=== PATIENT | female | born 1965 | race Caucasian/White ===

== ENCOUNTER 2017-11-05 09:21 | Day surgery (SDC) | payer MEDICARE, OTHER ==
[~2017-11-05] VITALS: Ht 175.3 cm; Wt 104.3 kg
[~2017-11-05 09:21] MED LIST: ALBU90OI INH; ALPR1; ASPI81EC PO; AZIT250 PO; BENZ100A PO; CARI350; CARI350 PO; CIPR500 PO; CLON1 PO; CLON2 PO; Duoneb 2.5-0.5 M3 ML INH; ESCI20 PO; GABA300 PO; GUAPHELA PO; HYDACE10B; HYDACE5 PO; HYDGUAL120 PO; HYDPAM25 PO; HYDPAM50 PO; IBUP800 PO; Kristalose20 GM PO; LACT10SY PO; LAMO100 PO; LEVFLO500 PO; MIRT15 PO; MORP15ER; MORP15ER PO; NAPR500; NITR100CA PO; OXYACE5T PO; OXYC10TA19 PO; PERP4 PO; PRAM.125 PO; PRAZ1 PO; PRAZ2 PO; PRED10 PO; PRED20 PO; PROACE100 PO; Percocet 7.5-31 EACH PO; Prednisone20 MG PO; QUET100; QUET200; QUET200 PO; QUET25; QUET25 PO; QUET300 PO; REPA2 PO; RXHYDGUAS PO; SENN187 PO; SIMV20 PO; SULTRIDS PO; TIZANIDINE HCL4 MG PO; VIBRYD PO; VIIBRYD40 MG PO; Vibramycin100 MG PO; Zithromax250 MG PO
== END 2017-11-05 23:04 | disposition home or self-care (01) ==
LOC: ORSCMMR 09:21
PROVIDERS: Internal Medicine Gastroenterology
PROC: 0DB48ZX Excision of Esophagogastric Junction, Via Natural or Artificial Opening Endoscopic, Diagnostic (ICD-10-PCS; principal; 2017-11-05 10:30)
PROC: 0DB68ZX Excision of Stomach, Via Natural or Artificial Opening Endoscopic, Diagnostic (ICD-10-PCS; principal; 2017-11-05 10:30)
PROC: 0DB58ZX Excision of Esophagus, Via Natural or Artificial Opening Endoscopic, Diagnostic (ICD-10-PCS; principal; 2017-11-05 10:30)
PROC: 0D758ZZ Dilation of Esophagus, Via Natural or Artificial Opening Endoscopic (ICD-10-PCS; principal; 2017-11-05 10:30)
PROC: 0DB98ZX Excision of Duodenum, Via Natural or Artificial Opening Endoscopic, Diagnostic (ICD-10-PCS; principal; 2017-11-05 10:30)
DX: R13.14 Dysphagia, pharyngoesophageal phase (principal); K29.80 Duodenitis without bleeding; K29.70 Gastritis, unspecified, without bleeding; F41.9 Anxiety disorder, unspecified; G47.33 Obstructive sleep apnea (adult) (pediatric); Z79.899 Other long term (current) drug therapy; F17.210 Nicotine dependence, cigarettes, uncomplicated
CPT/HCPCS: 88305; 88342; C1726; J2250; J3010; J7120

== ENCOUNTER 2018-05-16 23:25 | Emergency (ER) | payer MEDICARE, OTHER ==
[~2018-05-16] VITALS: Ht 175.3 cm; Wt 90.7 kg
[2018-05-16] MEDS ORDERED: SPIRIVA RESPIMAT4 GM INH (23:44)
[2018-05-16] MEDS ORDERED: QUETIAPINE FUM400 M1 PO (23:45)
[2018-05-16 23:49] LABS: BASOPHILS ABSOLUTE AUTO 0.05 K/mm3 (0.00-0.23); BASOPHILS PERCENT AUTO 0 % (0-2); EOSINOPHILS PERCENT AUTO 2 % (0-6); Hematocrit 40.2 % (33.0-51.0); Hemoglobin 13.2 g/dL (11.5-16.0); IMMATURE GRAN ABSOLUTE AUTO 0.07 K/mm3 (0.00-0.10); IMMATURE GRAN PERCENT AUTO 1 % (0-1); LYMPHOCYTES ABSOLUTE AUTO 3.27 K/mm3 (0.84-5.20); LYMPHOCYTES PERCENT AUTO 26 % (21-46); MONOCYTES ABSOLUTE AUTO 1.03 K/mm3 (0.16-1.47); MONOCYTES PERCENT AUTO 8 % (4-13); Mean Corpuscular HGB 31.7 pg (26.0-34.0); Mean Corpuscular HGB Conc 32.8 g/dL (31.5-36.5); Mean Corpuscular Volume 97 fL (80-100); Mean Platelet Volume 9.5 fL (9.1-12.4); NEUTROPHILS ABSOLUTE AUTO 7.98 K/mm3 (1.96-9.15); NEUTROPHILS PERCENT AUTO 63 % (41-73); Platelet Count 246 K/mm3 (150-400); RDW Coefficient Variation 12.7 % (11.7-14.2); RDW Standard Deviation 45.2 fL (35.1-46.3); Red Blood Cell Count 4.16 M/mm3 (3.80-5.20)
[2018-05-17 00:09] LABS: Alanine Aminotransfer (ALT/SGP 24 U/L (12-78); Albumin, Blood 3.3 g/dL (3.4-5.0); Albumin/Globulin Ratio 0.9 (0.8-1.8); Alk Phos 132 U/L (50-136); Anion Gap 9 mmol/L (6-16); Aspartate Aminotrans (AST/SGOT 18 U/L (12-37); Bilirubin, Total 0.2 mg/dL (0.1-1.0); Blood Urea Nitrogen 15 mg/dL (8-24); Bun/Creatinine Ratio 14.2 (12.0-20.0); CO2, Blood 22 mmol/L (21-32); Chloride, Blood 108 mmol/L (98-108); Creatinine, Blood 1.06 mg/dL (0.40-1.00); Globulin, Blood 3.8 g/dL (2.2-4.0); Glomerular Filtration Rate 58 (60-); Glucose, Blood 127 mg/dL (70-99); Magnesium, Blood 1.9 mg/dL (1.6-2.4); Potassium, Blood 3.6 mmol/L (3.5-5.5); Sodium, Blood 139 mmol/L (136-145); Total Protein, Blood 7.1 g/dL (6.4-8.2); Troponin I <0.015 ng/mL (0.000-0.040)
[2018-05-17] MEDS ORDERED: Prednisone20 MG PO (01:27)
[2018-05-17] MEDS ORDERED: ALBU2.5V5 NEB (01:47)
== END 2018-05-17 01:52 | disposition home or self-care (01) ==
LOC: ER 23:25
PROVIDERS: Emergency Medicine
DX: J44.1 Chronic obstructive pulmonary disease with (acute) exacerbation (principal); F32.9 Major depressive disorder, single episode, unspecified; F41.9 Anxiety disorder, unspecified; F17.210 Nicotine dependence, cigarettes, uncomplicated; Z88.0 Allergy status to penicillin; Z88.1 Allergy status to other antibiotic agents; Z79.899 Other long term (current) drug therapy
CPT/HCPCS: 71045; 80053; 83735; 83880; 84484; 85025; 93005; 93010; 94644; 99285-25

== ENCOUNTER 2018-11-02 10:00 | Day surgery (SDC) | payer MEDICARE, OTHER ==
[~2018-11-02] VITALS: Ht 175.3 cm; Wt 110.4 kg
[~2018-11-02 10:00] MED LIST changes: +ALBU2.5V5 NEB; +COMBIVENT RESPIM4 GM INH; +Flovent 110 MCG12 GM INH; +MIRAPEX ER2.25 MG PO; +Perphenazine16 MG PO; +QUETIAPINE FUM400 M1 PO; +SPIRIVA RESPIMAT4 GM INH; +Seroquel400 MG PO; +TIOT18 INH
[2018-11-02] MEDS ORDERED: Percocet 10-321 EACH (11:06)
--- NOTE | 2018-11-02 11:24 | NUR ---
11/02/18 1124 Wilmar Garcia 1110-DR ALICIA IN ROOM AND SITE CHECK DONE. DR ALICIA DID A LEFT SHOULDER BLOCK. PATIENT TOLERATED PROCEDURE WELL. VSS
--- NOTE | 2018-11-02 14:20 | NUR ---
11/02/18 1420 Rupinder Marie INSTRUCTED ON IS USE, POLAR PK USE. SHOULDER IMMOBILIZER USE, PAIN MEDS, S&S INFECTION, DRESSINGS, ROM HO FINGERS WRIST HAND, NO USE OF SHOULDER, NO LIFTING, HOME WITH FRIEND YVES TO CAR IN
== END 2018-11-02 14:12 | disposition home or self-care (01) ==
LOC: ORSCSDS 10:00
DX: M75.112 Incomplete rotator cuff tear or rupture of left shoulder, not specified as traumatic (principal); M75.22 Bicipital tendinitis, left shoulder; I10 Essential (primary) hypertension; J44.9 Chronic obstructive pulmonary disease, unspecified; Z87.891 Personal history of nicotine dependence; F31.9 Bipolar disorder, unspecified; E66.9 Obesity, unspecified; Z68.35 Body mass index [BMI] 35.0-35.9, adult; Z79.899 Other long term (current) drug therapy
CPT/HCPCS: C1713; J0171; J1100; J2250; J2370; J2405; J2710; J3010; J7120

== ENCOUNTER 2018-11-28 19:33 | Emergency (ER) | payer OTHER, MEDICARE ==
[~2018-11-28] VITALS: Ht 175.3 cm; Wt 106.6 kg
[~2018-11-28 19:33] MED LIST changes: +Percocet 10-321 EACH
[2018-11-28] MEDS ORDERED: CYCL10 PO (21:37)
== END 2018-11-28 21:44 | disposition home or self-care (01) ==
LOC: ER 19:33
DX: M54.6 Pain in thoracic spine (principal); V43.62XA Car passenger injured in collision with other type car in traffic accident, initial encounter; Z88.0 Allergy status to penicillin; Z88.8 Allergy status to other drugs, medicaments and biological substances; Z88.1 Allergy status to other antibiotic agents; Z79.899 Other long term (current) drug therapy; Z79.891 Long term (current) use of opiate analgesic; F32.9 Major depressive disorder, single episode, unspecified; F41.9 Anxiety disorder, unspecified; J44.9 Chronic obstructive pulmonary disease, unspecified; Z87.891 Personal history of nicotine dependence
CPT/HCPCS: 72040; 96372; 99283-25; J1885

== ENCOUNTER → 2019-04-29 | Outpatient (CLI) | payer MEDICARE, OTHER ==
[~2019-04-29] MED LIST changes: +CYCL10 PO
[2019-04-29 16:54] LABS: U Amphetamine Screen Not Detected; U Barbituate Screen Not Detected; U Benzodiazapine Screen Not Detected; U Buprenorphine Screen Not Detected; U Cannabinoids Screen Not Detected; U Cocaine Screen Not Detected; U Methadone Screen Not Detected; U Methamphetamine Screen Not Detected; U Opiates Screen Not Detected; U Oxycodone Screen Not Detected; U Phencyclidine Screen Not Detected; U Propoxyphene Screen Not Detected
[2019-05-06 14:07] LABS: TRICYCLIC ANTIDEP Negative ng/mL (Cutoff=100)
== END | disposition home or self-care (01) ==
LOC: LAB SHORT 16:34 → LAB 16:34
PROVIDERS: Registered Nurse Psychiatric/Mental Health
DX: Z51.81 Encounter for therapeutic drug level monitoring (principal); Z79.899 Other long term (current) drug therapy
CPT/HCPCS: 80369; G0481

== ENCOUNTER → 2019-10-24 | Outpatient (CLI) | payer MEDICARE, OTHER ==
[2019-10-24 20:10] LABS: U Amphetamine Screen Not Detected; U Barbituate Screen Not Detected; U Benzodiazapine Screen Not Detected; U Buprenorphine Screen Not Detected; U Cannabinoids Screen DETECTED; U Cocaine Screen Not Detected; U Methadone Screen Not Detected; U Methamphetamine Screen Not Detected; U Opiates Screen Not Detected; U Oxycodone Screen Not Detected; U Propoxyphene Screen Not Detected
== END | disposition home or self-care (01) ==
LOC: LAB 11:30 → LAB SHORT 11:30
PROVIDERS: Registered Nurse Psychiatric/Mental Health
DX: Z51.81 Encounter for therapeutic drug level monitoring (principal); Z79.899 Other long term (current) drug therapy

== ENCOUNTER 2021-01-04 08:01 | Day surgery (SDC) | payer MEDICARE, OTHER ==
[~2021-01-04] VITALS: Ht 175.3 cm; Wt 111.5 kg
== END 2021-01-04 12:30 | disposition home or self-care (01) ==
LOC: ORSCSDS 08:01
PROVIDERS: Podiatrist Foot & Ankle Surgery
PROC: 0LQT0ZZ Repair Left Ankle Tendon, Open Approach (ICD-10-PCS; principal; 2021-01-04 09:30)
PROC: 0LXT0ZZ Transfer Left Ankle Tendon, Open Approach (ICD-10-PCS; principal; 2021-01-04 09:30)
DX: M76.822 Posterior tibial tendinitis, left leg (principal); M21.42 Flat foot [pes planus] (acquired), left foot; I10 Essential (primary) hypertension; J44.9 Chronic obstructive pulmonary disease, unspecified; K21.9 Gastro-esophageal reflux disease without esophagitis; E66.01 Morbid (severe) obesity due to excess calories; Z68.36 Body mass index [BMI] 36.0-36.9, adult; F31.9 Bipolar disorder, unspecified; F41.9 Anxiety disorder, unspecified; Z79.899 Other long term (current) drug therapy
CPT/HCPCS: A9270; C1713; J0171; J1100; J2250; J2405; J2704; J3010

== ENCOUNTER 2021-08-06 14:05 | Emergency (ER) | payer MEDICARE, OTHER ==
[~2021-08-06] VITALS: Ht 175.3 cm; Wt 99.8 kg
== END 2021-08-06 17:33 | disposition home or self-care (01) ==
LOC: ER 14:05
DX: F41.0 Panic disorder [episodic paroxysmal anxiety] (principal); J44.9 Chronic obstructive pulmonary disease, unspecified; Z88.0 Allergy status to penicillin; Z88.1 Allergy status to other antibiotic agents; Z88.8 Allergy status to other drugs, medicaments and biological substances; Z79.899 Other long term (current) drug therapy; Z87.891 Personal history of nicotine dependence
CPT/HCPCS: 96374; 96375; 96376; 99283-25; J1200; J1790; J2060

== ENCOUNTER 2024-05-09 10:32 | Day surgery (SDC) | payer OTHER ==
[~2024-05-09] VITALS: Ht 175.3 cm; Wt 97.4 kg
[2024-05-09] VITALS (18 sets, daily range): BP systolic 128–173; BP diastolic 65–99
[~2024-05-09 10:32] MED LIST changes: +TIZA4 PO; +VICODIN PO
[2024-05-09] MEDS ORDERED: Ropivacaine 0.5% HCl/Pf 123.125 MG,EPINEPHrine HCL 0.25 MG,Ketorolac Tromethamine 15 MG... INFIL SCH (11:10)
[2024-05-09] MEDS ORDERED: OxyCODONE HCL 10 MG TABCR PO SCH (11:10)
[2024-05-09] MEDS ORDERED: Chlorhexidine Mouth Care 15 ML UDC MT SCH (11:10)
[2024-05-09] MEDS ORDERED: Acetaminophen 500 MG Tab PO SCH ×2 (11:10→16:00)
[2024-05-09] MEDS ORDERED: CeFAZolin Sodium 2,000 MG in NS 100 ML IV SCH ×2 (11:10→21:00)
[2024-05-09] MEDS ORDERED: Lactated Ringer's 1,000 ML IV SCH ×2 (11:10→13:05)
[2024-05-09] MEDS ORDERED: Tranexamic Acid 100 ML IV SCH (11:12)
[2024-05-09] MEDS ORDERED: FentaNYL Citrate 50 MCG/ML 2 ML Injection ONE ×3 (12:08→14:49)
[2024-05-09] MEDS ORDERED: propofoL 60 ML IV ONE (12:08)
--- NOTE | 2024-05-09 12:12 | NUR ---
History, Chart, Medications and Allergies reviewed before start of procedure. Pre-Op teaching done. Pt verbalizes understanding. Ambulatory in Day Surgery WITH STEADY GAIT. 2 RINGS REMOVED AND PLACED IN SPECIMEN CUP WITH PT LABEL AND PLACED IN BELONGINGS BAG. BELONGINGS PLACED UNDER GURNEY. PT DENIES FURTHER NEEDS AT THIS TIME.
[2024-05-09] MEDS ORDERED: Ondansetron HCl 2 MG / ML 2ML Vial ONE (12:53)
[2024-05-09] MEDS ORDERED: Dexamethasone Sod Phos 10 MG/ML 1ML VIAL ONE (12:53)
[2024-05-09] MEDS ORDERED: TiZANidine HCl 4 MG Tab PO PRN (12:55)
[2024-05-09] MEDS ORDERED: ClonazePAM 1 MG Tab PO PRN (13:00)
[2024-05-09] MEDS ORDERED: Metoclopramide HCl 5MG / ML 2ML Vial IV PRN (13:00)
[2024-05-09] MEDS ORDERED: Magnesium Hydroxide Conc 10 ML UDC PO PRN (13:05)
[2024-05-09] MEDS ORDERED: OxyCODONE HCL 5 MG TAB PO PRN ×2 (13:05)
[2024-05-09] MEDS ORDERED: Ondansetron HCl 2 MG / ML 2ML Vial IV PRN (13:05)
[2024-05-09] MEDS ORDERED: Misc. Tablet PO PRN (13:10)
[2024-05-09] MEDS ORDERED: HYDROmorphone HCl/Pf 1MG SYR IV PRN (13:10)
[2024-05-09] MEDS ORDERED: Bisacodyl 10 MG Supp PR PRN (13:10)
[2024-05-09] MEDS ORDERED: Promethazine HCl 25 MG Tab PO PRN (13:20)
[2024-05-09] MEDS ORDERED: DiphenhydrAMINE HCL 25 MG Cap PO PRN (13:20)
[2024-05-09] MEDS ORDERED: HYDROmorphone HCl/Pf 1MG SYR ONE ×2 (13:23→14:50)
--- NOTE | 2024-05-09 13:40 | NUR ---
05/09/24 1340 Sacha,Carole HEALING WOUND NOTICED ON DORSAL SURFACE OF RIGHT FOOT PRIOR TO ARRIVAL TO THE OR.
--- NOTE | 2024-05-09 17:33 | NUR ---
shift summary PT REPORTS PAIN MANAGED WELL PER EMAR. DRESSING REMAINS CDI. PT HAS YET TO VOID, ENCOURAGING PO INTAKE. TOLERATING HER DIET WELL. POLAR MILLA IN PLACE. GARRISON WRAP CDI. DENIES N/T. PLAN WILL BE FOR PATIENT TO WORK WITH THERAPY AND DISCHARGE TOMORROW.
[2024-05-09] MEDS ORDERED: Ketorolac Tromethamine 15mg Vial IV SCH (18:00)
[2024-05-09] MEDS ORDERED: QUEtiapine Fumarate 100 MG Tab PO SCH (21:00)
[2024-05-09] MEDS ORDERED: Docusate Sodium 100 MG Cap PO SCH (21:00)
[2024-05-10 02:05] VITALS: BP 123/59
[2024-05-10 04:27] LABS: BASOPHILS ABSOLUTE AUTO 0.02 K/mm3 (0.00-0.23); BASOPHILS PERCENT AUTO 0 % (0-2); EOSINOPHILS ABSOLUTE AUTO 0.01 K/mm3 (0.00-0.68); EOSINOPHILS PERCENT AUTO 0 % (0-6); Hematocrit 36.7 % (33.0-51.0); Hemoglobin 12.5 g/dL (11.5-16.0); IMMATURE GRAN ABSOLUTE AUTO 0.05 K/mm3 (0.00-0.10); IMMATURE GRAN PERCENT AUTO 0 % (0-1); LYMPHOCYTES ABSOLUTE AUTO 1.68 K/mm3 (0.84-5.20); LYMPHOCYTES PERCENT AUTO 12 % (21-46); MONOCYTES ABSOLUTE AUTO 0.66 K/mm3 (0.16-1.47); MONOCYTES PERCENT AUTO 5 % (4-13); Mean Corpuscular HGB 30.3 pg (26.0-34.0); Mean Corpuscular HGB Conc 34.1 g/dL (31.5-36.5); Mean Corpuscular Volume 89 fL (80-100); Mean Platelet Volume 9.8 fL (9.1-12.4); NEUTROPHILS ABSOLUTE AUTO 11.98 K/mm3 (1.96-9.15); NEUTROPHILS PERCENT AUTO 83 % (41-73); Platelet Count 285 K/mm3 (150-400); RDW Coefficient Variation 11.9 % (11.7-14.2); RDW Standard Deviation 38.1 fL (35.1-46.3); Red Blood Cell Count 4.12 M/mm3 (3.80-5.20)
[2024-05-10 04:56] LABS: Calcium, Blood 8.3 mg/dL (8.5-10.1); Creatinine, Blood 0.79 mg/dL (0.40-1.00); Magnesium, Blood 2.1 mg/dL (1.6-2.4); Potassium, Blood 4.4 mmol/L (3.5-5.5)
--- NOTE | 2024-05-10 05:06 | NUR ---
SUMMARY- PT HAS BEEN AMBULATING AND VOIDING WELL. PT PAIN TX PER MAR WITH RELIEF. PT HAS BEEN RESTING COMFORTABLY. NO NEW ISSUES OR CONCERNS. CALL LIGHT IN REACH.
[2024-05-10 07:36] VITALS: BP 109/59
[2024-05-10] MEDS ORDERED: Misc. Tablet PO SCH (09:00)
[2024-05-10] MEDS ORDERED: Aspirin 81 MG Chew PO SCH (09:00)
[2024-05-10] MEDS ORDERED: ASPI81CH PO (09:26)
[2024-05-10] MEDS ORDERED: OXAYDO5 M1 PO (09:26)
[2024-05-10] MEDS ORDERED: ACET500 PO (09:26)
--- NOTE | 2024-05-10 10:58 | NUR ---
DISCHARGE POD 1 RTKA PT AMBULATED WELL WITH THERAPY, PAIN WELL CONTROLLED PER EMAR. ANDRÉS LOYOLA AND JAYESH ENGEL ON. VITO DE [place] CHANGED THIS AM. OOZING FROM BOTTOM OF INCISION. EXTRA DRESSINGS SENT AND GARRISON WRAP FOR PRESSURE PRIOR TO DISCHARGE. EDUCATED PATIENT ON IMPORTANCE OF MONITORING DRAINAGE AND CONTACTING PHYSICIAN IF IT INCREASES OR ANY CONCERNS. ALL BELONGINGS WITH PATIENT. TAKEN OUT VIA WHEELCHAIR.
== END 2024-05-10 11:02 | disposition home or self-care (01) ==
LOC: ORSCMMR 10:32 → ORD 13:15 → ORSCMMR 13:15 → SURS 15:41 → ORSCMMR 05-10 11:02
PROVIDERS: Orthopaedic Surgery
PROC: 0SRC0JA Replacement of Right Knee Joint with Synthetic Substitute, Uncemented, Open Approach (ICD-10-PCS; principal; 2024-05-09 13:15)
DX: M17.11 Unilateral primary osteoarthritis, right knee (principal); F31.89 Other bipolar disorder; J44.9 Chronic obstructive pulmonary disease, unspecified; F41.1 Generalized anxiety disorder; Z79.899 Other long term (current) drug therapy; N18.9 Chronic kidney disease, unspecified; K21.9 Gastro-esophageal reflux disease without esophagitis; E66.9 Obesity, unspecified; Z68.31 Body mass index [BMI] 31.0-31.9, adult; F17.210 Nicotine dependence, cigarettes, uncomplicated
CPT/HCPCS: 36415; 73560-RT; 80048; 83735; 85025; 97110; 97116; 97162; A9270; C1713; C1776; J0171; J0690; J0735; J1100; J1170; J1885; J2405; J2704; J2795; J3010; J7120; Q0175